=== PATIENT | male | born 1975 | race African-American/Black ===

== ENCOUNTER → 2018-03-10 | Outpatient (CLI) | payer BC | END | disposition home or self-care (01) | LOC: CFH 07:22 | PROVIDERS: ATTEND Nurse Practitioner Primary Care | DX: M75.51 Bursitis of right shoulder (principal); M62.511 Muscle wasting and atrophy, not elsewhere classified, right shoulder; R53.83 Other fatigue; I10 Essential (primary) hypertension; M25.561 Pain in right knee; M25.562 Pain in left knee ==

== ENCOUNTER → 2018-06-26 | Outpatient (CLI) | payer BC | END | disposition home or self-care (01) | LOC: CVU 07:46 | PROVIDERS: ATTEND Internal Medicine | DX: I11.9 Hypertensive heart disease without heart failure (principal); I49.9 Cardiac arrhythmia, unspecified; E55.9 Vitamin D deficiency, unspecified | CPT/HCPCS: 93306 ==

== ENCOUNTER 2018-09-08 07:33 | Day surgery (SDC) | payer BC ==
[~2018-09-08] VITALS: Ht 175.3 cm; Wt 95.5 kg
[2018-09-08 08:22] VITALS: BP 152/103
[2018-09-08] MEDS ORDERED: PLEASE ENTER HEIGHT AND WEIGHT MC SCH (08:30)
[2018-09-08] MEDS ORDERED: SODIUM CHLORIDE 0.9% 1,000 ML IV ONE (08:30)
[2018-09-08] MEDS ORDERED: METO50TA4 PO (08:43)
[2018-09-08] MEDS ORDERED: NAPR-685 PO (08:43)
[2018-09-08] MEDS ORDERED: TRAM50TA2 PO (08:43)
[2018-09-08] MEDS ORDERED: APIX5TAB PO (08:43)
[2018-09-08] MEDS ORDERED: CLON0.2T PO (08:43)
[2018-09-08] MEDS ORDERED: CHOL200024 PO (08:43)
[2018-09-08] MEDS ORDERED: ERGO500017 PO (08:43)
[2018-09-08] MEDS ORDERED: AMLO-150 PO (08:43)
[2018-09-08] MEDS ORDERED: OMEP-110 PO (08:43)
[2018-09-08] MEDS ORDERED: HYDROCHLOROTH12.5 MG PO (08:43)
[2018-09-08] MEDS ORDERED: PROPOFOL 10 MG/ML, 20ML ONE (10:24)
== END 2018-09-08 11:53 | disposition home or self-care (01) ==
LOC: CACL 07:33
PROVIDERS: ATTEND Internal Medicine Cardiovascular Disease
DX: I48.91 Unspecified atrial fibrillation (principal); I08.0 Rheumatic disorders of both mitral and aortic valves; I10 Essential (primary) hypertension; Z72.89 Other problems related to lifestyle; Z82.49 Family history of ischemic heart disease and other diseases of the circulatory system; Z98.890 Other specified postprocedural states; Z79.899 Other long term (current) drug therapy; Z88.8 Allergy status to other drugs, medicaments and biological substances
CPT/HCPCS: 92960; 93312; 93321; 93325; J2704